=== PATIENT | male | born 1970 | race Caucasian/White ===

== ENCOUNTER → 2018-04-08 09:16 | Outpatient (CLI) | payer MEDICARE, SELFPAY ==
[2018-04-08 09:58] LABS: Add Manual Diff / Slide Review NO; Basophils Percent Auto 0.7 % (0-2); Eosinophils Percent Auto 2.7 % (2-4); Hematocrit 41.8 % (41-53); Hemoglobin 14.8 g/dL (13.5-17.5); Lymphocytes Percent Auto 35.7 % (25-40); Mean Corpuscular HGB Conc 35.3 % (30-36); Mean Corpuscular Hemoglobin 31.2 PG (26-34); Mean Corpuscular Volume 88.5 fL (80-100); Monocytes Percent Auto 8.6 % (3-14); Neutrophils Absolute Auto 3400 /uL (1500-7000); Neutrophils Percent Auto 52.3 % (50-75); Platelet Count 153 X10^3/uL (150-400); Red Blood Cell Count 4.72 X10^6/uL (4.5-5.9); Red Cell Distribution Width 13.3 % (11.6-14.8); White Blood Cell Count 6.5 X10^3/uL (4.5-11.0)
[2018-04-08 10:14] LABS: Alanine Aminotransferase 54 IU/L (21-72); Albumin 4.5 g/dL (3.5-5.0); Albumin Globulin Ratio 1.7 (1.0-2.8); Alkaline Phosphatase 61 U/L (38-126); Aspartate Aminotransferase 28 IU/L (17-59); BUN Creatinine Ratio 16.4 (6-22); Bilirubin Total 1.8 mg/dL (0.2-1.3); Blood Urea Nitrogen 18 mg/dL (9-20); Carbon Dioxide 23 mmol/L (22-32); Chloride 107 mmol/L (98-107); Cholesterol 180 mg/dL (140-199); Estimated Glomerular Filt Rate > 60.0 mL/min (>60); Globulin 2.7 g/dL (1.7-4.1); Glucose 104 mg/dL (70-100); HDL Cholesterol 38 mg/dL (40-60); HEMOLYSIS < 15 (0-50); LDL Cholesterol Calculated 118 mg/dL (<100); Potassium 4.5 mmol/L (3.4-5.1); Sodium 145 mmol/L (137-145); Total Protein 7.2 g/dL (6.3-8.2); Triglycerides 121 mg/dL (35-150)
[2018-04-08 11:39] LABS: Thyroid Stimulating Hormone 3.54 uIU/mL (0.47-4.68)
== END ==
PROVIDERS: PCP Physician Assistant; Visit Provider Physician Assistant
DX: E03.9 Hypothyroidism, unspecified (principal); Z13.220 Encounter for screening for lipoid disorders; Z13.6 Encounter for screening for cardiovascular disorders; R79.89 Other specified abnormal findings of blood chemistry
CPT/HCPCS: 36415; 80053; 80061; 84443; 85025

== ENCOUNTER → 2018-11-07 07:32 | Outpatient (CLI) | payer MEDICARE, SELFPAY ==
[2018-11-07 08:17] LABS: Hematocrit 40.8 % (41-53); Hemoglobin 14.3 g/dL (13.5-17.5); Mean Corpuscular Hemoglobin 30.9 PG (26-34); Mean Corpuscular Volume 88.3 fL (80-100); Platelet Count 142 X10^3/uL (150-400); Red Blood Cell Count 4.62 X10^6/uL (4.5-5.9); Red Cell Distribution Width 12.9 % (11.6-14.8)
[2018-11-07 08:26] LABS: Alanine Aminotransferase 48 IU/L (21-72); Albumin 4.5 g/dL (3.5-5.0); Albumin Globulin Ratio 1.6 (1.0-2.8); Alkaline Phosphatase 58 U/L (38-126); Aspartate Aminotransferase 30 IU/L (17-59); BUN Creatinine Ratio 17.5 (6-22); Bilirubin Total 1.8 mg/dL (0.2-1.3); Blood Urea Nitrogen 21 mg/dL (9-20); Calcium 10.3 mg/dL (8.4-10.2); Carbon Dioxide 25 mmol/L (22-32); Chloride 108 mmol/L (98-107); Cholesterol 194 mg/dL (140-199); Estimated Glomerular Filt Rate > 60.0 mL/min (>60); Globulin 2.9 g/dL (1.7-4.1); Glucose 100 mg/dL (70-100); HDL Cholesterol 37 mg/dL (40-60); HEMOLYSIS < 15 (0-50); LDL Cholesterol Calculated 127 mg/dL (<100); Potassium 4.2 mmol/L (3.4-5.1); Sodium 141 mmol/L (137-145); Total Protein 7.4 g/dL (6.3-8.2); Triglycerides 152 mg/dL (35-150)
[2018-11-07 08:56] LABS: Thyroid Stimulating Hormone 3.65 uIU/mL (0.47-4.68)
[2018-11-09 15:19] LABS: Valproic Acid (Depakene) Total 85.1 mg/L (50.0-100.0)
== END ==
PROVIDERS: Family Provider Nurse Practitioner Family; PCP Nurse Practitioner Family; Visit Provider Nurse Practitioner Psychiatric/Mental Health
DX: Z68.27 Body mass index [BMI] 27.0-27.9, adult (principal); Z51.81 Encounter for therapeutic drug level monitoring; E03.9 Hypothyroidism, unspecified; Z00.00 Encounter for general adult medical examination without abnormal findings
CPT/HCPCS: 36415; 80053; 80061; 80164; 80178; 84443; 85027

== ENCOUNTER → 2019-03-21 10:43 | Outpatient (CLI) | payer MEDICARE, SELFPAY ==
--- NOTE | 2019-03-21 10:45 | DI.RAD.S_ITS ---
PROCEDURE: XR CHEST 2V INDICATIONS: Cough TECHNIQUE: 2 views of the chest were acquired. COMPARISON: [facility], CT, CHEST/ABDOMEN WITH CONTRAST, 05/23/2017, 13:10. [facility], CR, CHEST 2 VIEW, 05/21/2017, 10:42. FINDINGS: Surgical changes and devices: None. Lungs and pleura: Lungs are clear. No pleural effusions or pneumothorax. Mediastinum: Mediastinal contours are normal. Heart size is normal. Bones and chest wall: No suspicious bony abnormalities. Soft tissues appear unremarkable. IMPRESSION: Normal for age, source of current cough symptoms is not seen. If unusual symptoms persist followup by screening chest CT may be warranted. Dictated by: Vinay Jimenez M.D. on 03/21/2019 at 10:56 Approved by: Vinay Jimenez M.D. on 03/21/2019 at 10:58
== END ==
PROVIDERS: Family Provider Nurse Practitioner Family; PCP Nurse Practitioner Family; Visit Provider Nurse Practitioner Family
DX: R05 Cough (principal)
CPT/HCPCS: 71046

== ENCOUNTER → 2019-03-28 16:31 | Outpatient (CLI) | payer MEDICARE, SELFPAY ==
--- NOTE | 2019-03-28 16:34 | DI.RAD.S_ITS ---
PROCEDURE: XR CHEST 2V INDICATIONS: Cough, crackles, r/o effusion TECHNIQUE: 2 views of the chest were acquired. COMPARISON: [facility], CR, XR CHEST 2V, 03/21/2019, 10:43. FINDINGS: Surgical changes and devices: None. Lungs and pleura: Lungs are clear. No pleural effusions or pneumothorax. Mediastinum: Mediastinal contours are normal. Heart size is normal. Bones and chest wall: No suspicious bony abnormalities. Soft tissues appear unremarkable. IMPRESSION: No acute pulmonary process. Dictated by: Valery Ferguson M.D. on 03/28/2019 at 16:52 Approved by: Valery Ferguson M.D. on 03/28/2019 at 16:52
== END ==
PROVIDERS: Family Provider Nurse Practitioner Family; PCP Nurse Practitioner Family; Visit Provider Nurse Practitioner
DX: R05 Cough (principal); R09.89 Other specified symptoms and signs involving the circulatory and respiratory systems
CPT/HCPCS: 71046

== ENCOUNTER 2019-06-16 10:35 | Day surgery (SDC) | payer MEDICARE, SELFPAY ==
--- NOTE | 2019-06-16 | PATH_ITS ---
[facility] Accession Number: [id number] . 01 Material submitted: . PART A: duodenum - DUODENAL POLYP PART B: esophagus, E-G Junction - GE JUNCTION BIOPSY . 02 Diagnosis: A. Duodenal Polyp, Biopsy: Duodenal mucosa with foveolar metaplasia, consistent with peptic duodenitis. Negative for dysplasia or malignancy. Additional step sections examined. . B. Gastroesophageal Junction, Biopsy: Squamous epithelium with mild chronic inflammation. Intraepithelial eosinophils are not increased. No proximal gastric-type mucosa present for evaluation. Negative for dysplasia or malignancy. V 06/18/2019 1505 Local . 02 Electronically signed: . Heber Yuen MD, PhD, Pathologist NPI- [id number] . 01 Gross description: . Part A: DUODENAL POLYP: Received in formalin is 1 fragment(s) of barrios, soft tissue measuring 0.1 x 0.1 x 0.1 cm submitted entirely in 1 cassette(s) Part B: GE JUNCTION BIOPSY: Received in formalin are 2 fragment(s) of barrios, soft tissue measuring 0.2 x 0.2 x 0.1 cm to 0.3 x 0.2 x 0.2 cm submitted entirely in 1 cassette(s) /[facility] [place] [facility] 06/17/2019 0011 Local . 02 Pathologist provided ICD-10: R13.10, K31.7 . 02 CPT . 705323, [id number] Performed at: 01 [facility] includes the [facility] [address] [facility], [place], [place] [id number] MD Beau Leavitt MD Phone: [phone] Performed at: 02 [facility] [place] [address] [place], [place] [id number] MD Venus Fofana MD Phone: [phone]
[2019-06-16 11:23] VITALS: BP 104/75; PULSE 62; RESP 20; TEMP 36.2; O2SAT 98; BMI 27.2
[2019-06-16] MEDS: SODIUM CHLORIDE 0.9% 1,000 ML 200 ML IV (11:37)
--- NOTE | 2019-06-16 11:45 | PM.PREOP ---
Pre-operative Note Interval Note History & Physical reviewed/Exam performed by Physician: Yes Changes to H&P: No ASA Class (for procedural sedation): II
--- NOTE | 2019-06-16 11:48 | SUR.PREOP ---
Patient extremely anxious about preop and procedure. Discussed in depth and very calmly the process and what to expect. Let patient process things slowly. Patient stated he was unsure if he could even put his gown on. Talked to patient about all options including that he does not have to have procedure done. Offered to call patient's father or anyone else which he declined. Updated Dr. Martínez of patient's anxiety. Dr. Martínez stated that patient may keep his clothing on for comfort. After discussing this with patient patient agreed to move on to the next step of preop. Very slowly went through the rest of preop, discussing every step before it was done. Patient tolerated IV start well and once that was in he became much less anxious. Dr. Martínez discussed procedure with patient and Endo nurse calmly came and took patient to procedure room.
--- NOTE | 2019-06-16 12:06 | PM.OP.ENDO ---
Operative Date/Time/Diagnoses Date of procedure: 06/16/19 Time of procedure: 12:07 Pre-op diagnosis: Dysphagia Post-op diagnosis: same Procedure & Clinicians Study performed: Esophagoduodenoscopy Same procedure as scheduled: Yes Indications: 49-year-old man with the reflux and new onset dysphagia. Surgeon: Adair Martínez Procedure Notes SCOAP/Timeout: Performed Procedure in detail: Patient placed in left lateral decubitus position. Time out was performed. Procedural sedation was administered with Versed and Fentanyl. A bite block was placed. the scope was inserted into the mouth and advanced through the esophagus and into the stomach. The pylorus was intubated and the duodenum was was normal for a less than 1 cm polyp in the 1st portion of the duodenum which was biopsied with Jumbo forceps. Hemostasis was observed.. The scope was retroflexed within the stomach and there was a hiatal hernia. No ulcers, or gastritis. The scope was withdrawn into the esophagus the Z line was seen at 35 cm from the incisions. There was no romero's esophagitis or masses or strictures. 4 random biopsies of the Z line were taken with forceps. Stomach was desufflated and scope removed. Patient tolerated procedure well. Sedation minutes: 13 Findings: hiatal hernia and polyp Specimen(s): other (GE junction, duodenal polyp) Complications: none Impression: Duodenal polyp, hiatal hernia Post-procedure Recommendations: Continue medication(s) (Omeprazole 20 mg daily) Disposition: same day surgery
[2019-06-16] MEDS: MIDAZOLAM 5 MG/5 ML VIAL IV (12:10)
[2019-06-16] MEDS: fentaNYL 250 MCG/5 ML INJ IV (12:10)
[2019-06-16 12:20] VITALS: BP 102/67; PULSE 77; RESP 17; TEMP 35.8; O2SAT 93
[2019-06-16] MEDS: TETRACAINE/BENZOCAINE/BUTAMBEN (CETACAINE) BOTTLE 1 SPRAY TOP (12:21)
[2019-06-16 12:25] VITALS: BP 108/75; PULSE 78; RESP 19; O2SAT 93
[2019-06-16 12:30] VITALS: BP 115/78; PULSE 76; RESP 15; O2SAT 92
[2019-06-16 12:34] VITALS: BP 107/68; PULSE 80; RESP 14; O2SAT 93
[2019-06-16 12:35] VITALS: BP 110/72; PULSE 80; RESP 16; O2SAT 93
== END 2019-06-16 12:50 | disposition home or self-care (01) ==
PROVIDERS: PCP Nurse Practitioner Family; Visit Provider Surgery
PROC: 0DJ08ZZ Inspection of Upper Intestinal Tract, Via Natural or Artificial Opening Endoscopic (ICD-10-PCS; CPT 43235; principal; 2019-06-16 11:30)
DX: R13.10 Dysphagia, unspecified (principal); K44.9 Diaphragmatic hernia without obstruction or gangrene; K31.7 Polyp of stomach and duodenum
CPT/HCPCS: 43239; 99152; J2250; J3010

== ENCOUNTER → 2020-04-12 07:15 | Outpatient (CLI) | payer MEDICARE, SELFPAY ==
[2020-04-12 08:47] LABS: Hematocrit 39.5 % (41-53); Hemoglobin 13.6 g/dL (13.5-17.5); Mean Corpuscular HGB Conc 34.5 % (30-36); Mean Corpuscular Hemoglobin 30.6 PG (26-34); Mean Corpuscular Volume 88.7 fL (80-100); Platelet Count 131 X10^3/uL (150-400); Red Blood Cell Count 4.46 X10^6/uL (4.5-5.9); Red Cell Distribution Width 13.5 % (11.6-14.8); White Blood Cell Count 5.1 X10^3/uL (4.5-11.0)
[2020-04-12 08:52] LABS: Hemoglobin A1C% w Est Avg Glu 4.8 % (4.0-6.0)
[2020-04-12 09:12] LABS: Lithium 0.9 mmol/L (0.6-1.2)
[2020-04-12 09:16] LABS: Alanine Aminotransferase 109 IU/L (<50); Albumin 4.1 g/dL (3.5-5.0); Albumin Globulin Ratio 1.5 (1.0-2.8); Alkaline Phosphatase 60 U/L (38-126); Aspartate Aminotransferase 49 IU/L (17-59); BUN Creatinine Ratio 13.4 (6-22); Bilirubin Total 1.4 mg/dL (0.2-1.3); Blood Urea Nitrogen 17 mg/dL (9-20); Calcium 9.8 mg/dL (8.4-10.2); Carbon Dioxide 27 mmol/L (22-32); Chloride 108 mmol/L (98-107); Estimated Glomerular Filt Rate > 60.0 mL/min (>60); Globulin 2.8 g/dL (1.7-4.1); Glucose 97 mg/dL (70-100); HEMOLYSIS < 15 (0-50); Potassium 4.1 mmol/L (3.4-5.1); Sodium 140 mmol/L (137-145); Total Protein 6.9 g/dL (6.3-8.2)
[2020-04-12 09:32] LABS: Free T4, Direct Thyroxine 0.83 ng/dL (0.78-2.19)
[2020-04-14 06:10] LABS: Valproic Acid (Depakene) Total 81 ug/mL (50-100)
== END ==
PROVIDERS: PCP Nurse Practitioner Family; Referring Provider Nurse Practitioner Psychiatric/Mental Health; Visit Provider Nurse Practitioner Psychiatric/Mental Health
DX: F31.32 Bipolar disorder, current episode depressed, moderate (principal); Z79.899 Other long term (current) drug therapy; Z51.81 Encounter for therapeutic drug level monitoring; D69.6 Thrombocytopenia, unspecified; E83.52 Hypercalcemia; R17 Unspecified jaundice; E03.9 Hypothyroidism, unspecified
CPT/HCPCS: 36415; 80053; 80164; 80178; 83036; 84439; 84443; 85027

== ENCOUNTER → 2020-06-09 07:12 | Outpatient (CLI) | payer MEDICARE, SELFPAY ==
[2020-06-09 08:12] LABS: Add Manual Diff / Slide Review NO; Basophils Absolute Auto 0 /uL (0-100); Basophils Percent Auto 0.5 % (0-2); Eosinophils Absolute Auto 100 /uL (0-450); Eosinophils Percent Auto 2.4 % (2-4); Hematocrit 40.9 % (41-53); Hemoglobin 14.1 g/dL (13.5-17.5); Lymphocytes Absolute Auto 2000 /uL (1100-4500); Lymphocytes Percent Auto 34.5 % (25-40); Mean Corpuscular HGB Conc 34.4 % (30-36); Mean Corpuscular Hemoglobin 30.6 PG (26-34); Mean Corpuscular Volume 88.9 fL (80-100); Monocytes Absolute Auto 500 /uL (0-900); Monocytes Percent Auto 9.1 % (3-14); Neutrophils Absolute Auto 3200 /uL (1500-7000); Neutrophils Percent Auto 53.5 % (50-75); Platelet Count 128 X10^3/uL (150-400); Red Cell Distribution Width 13.6 % (11.6-14.8); White Blood Cell Count 5.9 X10^3/uL (4.5-11.0)
[2020-06-09 09:01] LABS: Alanine Aminotransferase 98 IU/L (<50); Albumin 4.3 g/dL (3.5-5.0); Albumin Globulin Ratio 1.5 (1.0-2.8); Alkaline Phosphatase 66 U/L (38-126); Aspartate Aminotransferase 43 IU/L (17-59); Bilirubin Total 1.8 mg/dL (0.2-1.3); Bilirubin Unconjugated 1.8 mg/dL (0.0-1.1); Globulin 2.8 g/dL (1.7-4.1); HEMOLYSIS < 15 (0-50); Total Protein 7.1 g/dL (6.3-8.2)
[2020-06-09 09:33] LABS: Thyroid Stimulating Hormone 3.25 uIU/mL (0.47-4.68)
== END ==
PROVIDERS: PCP Nurse Practitioner Family; Referring Provider Nurse Practitioner Family; Visit Provider Nurse Practitioner Family
DX: E03.9 Hypothyroidism, unspecified (principal); R74.8 Abnormal levels of other serum enzymes; D69.6 Thrombocytopenia, unspecified
CPT/HCPCS: 36415; 80076; 84443; 85025

== ENCOUNTER → 2020-07-01 07:08 | Outpatient (CLI) | payer MEDICARE, SELFPAY ==
[2020-07-01 08:00] LABS: Add Manual Diff / Slide Review NO; Basophils Absolute Auto 0 /uL (0-100); Basophils Percent Auto 0.5 % (0-2); Eosinophils Absolute Auto 100 /uL (0-450); Eosinophils Percent Auto 2.2 % (2-4); Hematocrit 40.6 % (41-53); Hemoglobin 14.2 g/dL (13.5-17.5); Lymphocytes Absolute Auto 1600 /uL (1100-4500); Lymphocytes Percent Auto 24.6 % (25-40); Mean Corpuscular HGB Conc 35.1 % (30-36); Mean Corpuscular Hemoglobin 30.9 PG (26-34); Mean Corpuscular Volume 88.1 fL (80-100); Monocytes Absolute Auto 600 /uL (0-900); Monocytes Percent Auto 9.9 % (3-14); Neutrophils Absolute Auto 4000 /uL (1500-7000); Neutrophils Percent Auto 62.8 % (50-75); Platelet Count 139 X10^3/uL (150-400); Red Cell Distribution Width 13.5 % (11.6-14.8); White Blood Cell Count 6.4 X10^3/uL (4.5-11.0)
[2020-07-01 08:08] LABS: Lithium 1.1 mmol/L (0.6-1.2)
[2020-07-01 08:10] LABS: Alanine Aminotransferase 115 IU/L (<50); Albumin 4.7 g/dL (3.5-5.0); Albumin Globulin Ratio 1.8 (1.0-2.8); Alkaline Phosphatase 67 U/L (38-126); Aspartate Aminotransferase 50 IU/L (17-59); BUN Creatinine Ratio 16.2 (6-22); Bilirubin Total 2.3 mg/dL (0.2-1.3); Blood Urea Nitrogen 21 mg/dL (9-20); Carbon Dioxide 24 mmol/L (22-32); Chloride 108 mmol/L (98-107); Estimated Glomerular Filt Rate 58.9 mL/min (>60); Globulin 2.6 g/dL (1.7-4.1); Glucose 105 mg/dL (70-100); HEMOLYSIS < 15 (0-50); Potassium 4.2 mmol/L (3.4-5.1); Sodium 140 mmol/L (137-145); Total Protein 7.3 g/dL (6.3-8.2)
--- NOTE | 2020-07-01 10:42 | DI.US.S_ITS ---
PROCEDURE: US ABDOMEN COMPLETE INDICATIONS: ELEVATED BILIRUBIN TECHNIQUE: Real-time scanning was performed of the abdominal and retroperitoneal organs, with image documentation. COMPARISON: None. FINDINGS: Liver: Liver is diffusely increased in echogenicity. No focal hepatic abnormalities identified. Normal hepatic size. Gallbladder: No gallstones identified. Normal gallbladder wall. No pericholecystic fluid. Negative sonographic Smiht sign. Biliary ducts: Intrahepatic bile ducts are non-dilated. Extrahepatic bile duct caliber measures 5.8 mm. Normal is 6-7 mm or less in diameter, or 10 mm or less post-cholecystectomy. Pancreas: Visualized portions of the pancreas are sonographically normal. Spleen: Spleen is enlarged in size at 15.4 cm and homogeneous in echotexture. Kidneys: Kidneys are normal in size and echotexture. Right kidney measures 10.7 cm long; left kidney measures 11.7 cm long. No hydronephrosis or nephrolithiasis. No solid masses. Simple left renal cortical cyst measuring 11 mm. Aorta: Visualized aorta is normal in caliber at less than 3 cm. Iliacs: Proximal common iliac arteries are normal in caliber at less than 2.5 cm. IVC: Intrahepatic inferior vena cava is patent. Miscellaneous: No free abdominal fluid. IMPRESSION: 1. Increased hepatic echogenicity noted possibly related to hepatic steatosis but other sources of hepatocellular disease cannot be excluded. Recommend clinical correlation. 2. Sonographic splenomegaly. 3. 11 mm left renal cortical cyst. Dictated by: Guzman Coker [facility] Interpreted: Valery Ferguson MD on 07/02/2020 at 9:20 Approved by: Valery Ferguson M.D. on 07/02/2020 at 11:02
[2020-07-01 23:46] LABS: Valproic Acid (Depakene) Total 85 ug/mL (50-100)
== END ==
PROVIDERS: PCP Nurse Practitioner Family; Referring Provider Nurse Practitioner Psychiatric/Mental Health; Visit Provider Nurse Practitioner Family
DX: R17 Unspecified jaundice (principal); R74.8 Abnormal levels of other serum enzymes; R16.1 Splenomegaly, not elsewhere classified; N28.1 Cyst of kidney, acquired; D69.6 Thrombocytopenia, unspecified; Z51.81 Encounter for therapeutic drug level monitoring
CPT/HCPCS: 36415; 76700; 80053; 80164; 80178; 85025

== ENCOUNTER → 2020-07-21 07:15 | Outpatient (CLI) | payer MEDICARE, SELFPAY ==
[2020-07-21 08:36] LABS: Hemoglobin 14.1 g/dL (13.5-17.5); Mean Corpuscular HGB Conc 34.5 % (30-36); Mean Corpuscular Hemoglobin 30.6 PG (26-34); Mean Corpuscular Volume 88.9 fL (80-100); Platelet Count 151 X10^3/uL (150-400); Red Blood Cell Count 4.61 X10^6/uL (4.5-5.9); Red Cell Distribution Width 13.6 % (11.6-14.8); White Blood Cell Count 5.3 X10^3/uL (4.5-11.0)
[2020-07-21 09:02] LABS: Alanine Aminotransferase 122 IU/L (<50); Albumin 4.6 g/dL (3.5-5.0); Albumin Globulin Ratio 1.6 (1.0-2.8); Alkaline Phosphatase 66 U/L (38-126); Aspartate Aminotransferase 60 IU/L (17-59); BUN Creatinine Ratio 19.2 (6-22); Bilirubin Total 1.8 mg/dL (0.2-1.3); Blood Urea Nitrogen 24 mg/dL (9-20); Calcium 10.4 mg/dL (8.4-10.2); Carbon Dioxide 22 mmol/L (22-32); Chloride 108 mmol/L (98-107); Estimated Glomerular Filt Rate > 60.0 mL/min (>60); Globulin 2.9 g/dL (1.7-4.1); Glucose 106 mg/dL (70-100); HEMOLYSIS < 15 (0-50); Potassium 4.4 mmol/L (3.4-5.1); Sodium 140 mmol/L (137-145); Total Protein 7.5 g/dL (6.3-8.2)
== END ==
PROVIDERS: PCP Nurse Practitioner Family; Referring Provider Nurse Practitioner Family; Visit Provider Nurse Practitioner Psychiatric/Mental Health
DX: D69.6 Thrombocytopenia, unspecified (principal); R74.8 Abnormal levels of other serum enzymes; Z51.81 Encounter for therapeutic drug level monitoring
CPT/HCPCS: 36415; 80053; 80178; 85027

== ENCOUNTER → 2020-10-22 07:07 | Outpatient (CLI) | payer MEDICARE, SELFPAY ==
[2020-10-22 08:25] LABS: Add Manual Diff / Slide Review NO; Basophils Absolute Auto 0 /uL (0-100); Basophils Percent Auto 0.5 % (0-2); Eosinophils Absolute Auto 100 /uL (0-450); Eosinophils Percent Auto 2.7 % (2-4); Hematocrit 41.5 % (41-53); Hemoglobin 14.4 g/dL (13.5-17.5); Lymphocytes Absolute Auto 1400 /uL (1100-4500); Lymphocytes Percent Auto 29.3 % (25-40); Mean Corpuscular HGB Conc 34.6 % (30-36); Mean Corpuscular Hemoglobin 30.2 PG (26-34); Mean Corpuscular Volume 87.3 fL (80-100); Monocytes Absolute Auto 400 /uL (0-900); Monocytes Percent Auto 8.8 % (3-14); Neutrophils Absolute Auto 2900 /uL (1500-7000); Neutrophils Percent Auto 58.7 % (50-75); Platelet Count 142 X10^3/uL (150-400); Red Blood Cell Count 4.75 X10^6/uL (4.5-5.9); Red Cell Distribution Width 13.3 % (11.6-14.8); White Blood Cell Count 4.9 X10^3/uL (4.5-11.0)
[2020-10-22 08:42] LABS: Hemoglobin A1C% w Est Avg Glu 4.8 % (4.0-6.0)
[2020-10-22 08:47] LABS: Alanine Aminotransferase 67 IU/L (<50); Albumin 4.5 g/dL (3.5-5.0); Albumin Globulin Ratio 1.6 (1.0-2.8); Alkaline Phosphatase 54 U/L (38-126); Aspartate Aminotransferase 39 IU/L (17-59); BUN Creatinine Ratio 14.3 (6-22); Bilirubin Total 2.7 mg/dL (0.2-1.3); Bilirubin Unconjugated 2.5 mg/dL (0.0-1.1); Blood Urea Nitrogen 17 mg/dL (9-20); Calcium 10.6 mg/dL (8.4-10.2); Carbon Dioxide 25 mmol/L (22-32); Chloride 109 mmol/L (98-107); Estimated Glomerular Filt Rate > 60.0 mL/min (>60); Globulin 2.8 g/dL (1.7-4.1); Glucose 99 mg/dL (70-100); HEMOLYSIS < 15 (0-50); Potassium 4.3 mmol/L (3.4-5.1); Sodium 141 mmol/L (137-145); Total Protein 7.3 g/dL (6.3-8.2)
[2020-10-22 09:42] LABS: Lithium 1.2 mmol/L (0.6-1.2)
[2020-10-22 10:00] LABS: Free T4, Direct Thyroxine 0.85 ng/dL (0.78-2.19)
[2020-10-22 10:14] LABS: Thyroid Stimulating Hormone 2.15 uIU/mL (0.47-4.68)
[2020-10-22 23:14] LABS: Valproic Acid (Depakene) Total 48 ug/mL (50-100)
== END ==
PROVIDERS: Nurse Practitioner Psychiatric/Mental Health; PCP Nurse Practitioner Family; Referring Provider Nurse Practitioner Family; Visit Provider Nurse Practitioner Family
DX: E03.9 Hypothyroidism, unspecified (principal); Z51.81 Encounter for therapeutic drug level monitoring; F31.9 Bipolar disorder, unspecified; K76.0 Fatty (change of) liver, not elsewhere classified
CPT/HCPCS: 36415; 80053; 80076; 80164; 80178; 83036; 84439; 84443; 85025

== ENCOUNTER → 2021-01-19 07:11 | Outpatient (CLI) | payer MEDICARE, SELFPAY ==
[2021-01-19 08:00] LABS: Add Manual Diff / Slide Review NO; Basophils Absolute Auto 0 /uL (0-100); Basophils Percent Auto 0.3 % (0-2); Eosinophils Absolute Auto 100 /uL (0-450); Hematocrit 41.9 % (41-53); Hemoglobin 14.2 g/dL (13.5-17.5); Lymphocytes Absolute Auto 1400 /uL (1100-4500); Lymphocytes Percent Auto 23.7 % (25-40); Mean Corpuscular Hemoglobin 30.3 PG (26-34); Mean Corpuscular Volume 89.1 fL (80-100); Monocytes Absolute Auto 500 /uL (0-900); Monocytes Percent Auto 8.3 % (3-14); Neutrophils Absolute Auto 3800 /uL (1500-7000); Neutrophils Percent Auto 65.7 % (50-75); Platelet Count 130 X10^3/uL (150-400); Red Blood Cell Count 4.71 X10^6/uL (4.5-5.9); Red Cell Distribution Width 14.2 % (11.6-14.8); White Blood Cell Count 5.8 X10^3/uL (4.5-11.0)
[2021-01-19 08:22] LABS: Alanine Aminotransferase 71 IU/L (<50); Albumin 4.4 g/dL (3.5-5.0); Albumin Globulin Ratio 1.6 (1.0-2.8); Alkaline Phosphatase 57 U/L (38-126); Aspartate Aminotransferase 47 IU/L (17-59); Bilirubin Total 1.9 mg/dL (0.2-1.3); Bilirubin Unconjugated 1.9 mg/dL (0.0-1.1); Globulin 2.8 g/dL (1.7-4.1); HEMOLYSIS 21 (0-50); Total Protein 7.2 g/dL (6.3-8.2)
[2021-01-19 08:34] LABS: Free T4, Direct Thyroxine 0.88 ng/dL (0.78-2.19)
[2021-01-19 08:48] LABS: Thyroid Stimulating Hormone 2.13 uIU/mL (0.47-4.68)
[2021-01-20 00:52] LABS: HBsAg Screen Negative (Negative); Hepatitis A Antibody IgM Negative (Negative); Hepatitis B Core Antibody IgM Negative (Negative); Hepatitis C Antibody <0.1 s/co ratio (0.0-0.9)
[2021-01-20 16:27] LABS: Calcium 9.9 mg/dL (8.7-10.2); Parathyroid Hormone, Intact 47 pg/mL (15-65)
[2021-01-21 13:10] LABS: Smooth Muscle Antibody 8 Units (0-19)
[2021-01-21 17:44] LABS: ANA Screen, IFA Negative (.)
== END ==
PROVIDERS: PCP Nurse Practitioner Family; Referring Provider Nurse Practitioner Family; Visit Provider Nurse Practitioner Family
DX: K76.0 Fatty (change of) liver, not elsewhere classified (principal); R17 Unspecified jaundice; E03.9 Hypothyroidism, unspecified; R74.8 Abnormal levels of other serum enzymes; D69.6 Thrombocytopenia, unspecified
CPT/HCPCS: 36415; 80074; 80076; 82310; 83516; 83970; 84439; 84443; 85025; 86038

== ENCOUNTER → 2021-05-23 07:05 | Outpatient (CLI) | payer MEDICARE, SELFPAY ==
[2021-05-23 08:24] LABS: Add Manual Diff / Slide Review NO; Basophils Absolute Auto 0 /uL (0-100); Basophils Percent Auto 0.5 % (0-2); Eosinophils Absolute Auto 100 /uL (0-450); Eosinophils Percent Auto 2.3 % (2-4); Hematocrit 38.1 % (41-53); Hemoglobin 13.5 g/dL (13.5-17.5); Lymphocytes Absolute Auto 1600 /uL (1100-4500); Lymphocytes Percent Auto 28.8 % (25-40); Mean Corpuscular HGB Conc 35.3 % (30-36); Mean Corpuscular Hemoglobin 31.4 PG (26-34); Monocytes Absolute Auto 400 /uL (0-900); Monocytes Percent Auto 7.9 % (3-14); Neutrophils Absolute Auto 3300 /uL (1500-7000); Neutrophils Percent Auto 60.5 % (50-75); Platelet Count 165 X10^3/uL (150-400); Red Blood Cell Count 4.28 X10^6/uL (4.5-5.9); Red Cell Distribution Width 13.4 % (11.6-14.8); White Blood Cell Count 5.4 X10^3/uL (4.5-11.0)
[2021-05-23 08:37] LABS: Alanine Aminotransferase 45 IU/L (<50); Albumin 4.3 g/dL (3.5-5.0); Albumin Globulin Ratio 1.5 (1.0-2.8); Alkaline Phosphatase 52 U/L (38-126); Aspartate Aminotransferase 28 IU/L (17-59); BUN Creatinine Ratio 13.4 (6-22); Bilirubin Total 1.3 mg/dL (0.2-1.3); Blood Urea Nitrogen 16 mg/dL (9-20); Calcium 10.4 mg/dL (8.4-10.2); Carbon Dioxide 29 mmol/L (22-32); Chloride 110 mmol/L (98-107); Estimated Glomerular Filt Rate > 60.0 mL/min (>60); Globulin 2.8 g/dL (1.7-4.1); Glucose 101 mg/dL (70-100); HEMOLYSIS < 15 (0-50); Potassium 4.7 mmol/L (3.4-5.1); Sodium 144 mmol/L (137-145); Total Protein 7.1 g/dL (6.3-8.2)
== END ==
PROVIDERS: PCP Nurse Practitioner Family; Referring Provider Nurse Practitioner Family; Visit Provider Nurse Practitioner Family
DX: D69.6 Thrombocytopenia, unspecified (principal); R17 Unspecified jaundice; R74.8 Abnormal levels of other serum enzymes; Z00.00 Encounter for general adult medical examination without abnormal findings
CPT/HCPCS: 36415; 80053; 85025

== ENCOUNTER 2021-08-03 10:15 | Outpatient (RCR) | payer MEDICARE, SELFPAY ==
--- NOTE | 2021-08-03 12:34 | PT.OIE ---
Current Diagnoses Other chronic pain (08/03/21) Other instability, unspecified knee (08/03/21) Pain in right knee (08/03/21) Pain in left knee (08/03/21) Past Medical History (Last Updated 06/07/21 @ 16:08 by RACHANA Powers) Bipolar disorder Bunion of great toe of right foot Depression Dysphagia (2009) Elevated bilirubin Elevated liver enzymes Empyema Fatty liver (2020) Hiatal hernia (06/2019) Hypothyroidism Knee pain Medication management No history of previous surgery Thrombocytopenia Past Surgical History (Last Reviewed 08/22/20 @ 11:13 by Kimberlee Vargas PA-C) No history of previous surgery Visit Care Team Role Provider Type RACHANA Powers Attending Provider Nurse Practitioner Family Provider Primary Care Provider Referring Provider Specialty: Sleep Medicine Address: [address] [place] [address], [facility] Email: [email or web address] Physical Therapy Initial Evaluation PT-OP-A Visit Information Start: 08/03/21 12:05 Freq: Status: Active Protocol: Document 08/03/21 10:30 DCW (Rec: 08/03/21 12:19 [facility] [id number]) Out-Patient Physical Therapy Visit Information Visit Information Visit Type Initial Evaluation Visit Start Time 10:30 Visit Stop Time 11:15 Total Visit Minutes 45 Visit Number 1 Number of PHYSICS DEPARTMENT CHAIR Visits 0 Evaluation Information Evaluation Date 08/03/21 PT-OP-B Current Condition Start: 08/03/21 12:05 Freq: Status: Active Protocol: Document 08/03/21 10:30 DCW (Rec: 08/03/21 12:19 DC [id number]) Current Condition History of Current Condition Onset Date ~14 year history Current Complaints Bilateral knee pain History of Current Condition Pt is a 51 year old male presenting with a long- standing history of bilateral knee pain. Pt reports that ~7- 8 years ago, he underwent PT for this same issue, notes it did help a little , but he did not keep up with his HEP, and has been worsening ever since . Pt notes both knees are pretty sensitive to touch and movement. Pt is able to participate in work and is able to walk, but not much else. Pt notes he struggles trying to bowl, and has difficulty descending stairs. Notes fairly constant grinding in his knees with walking. Treatment Goals Patient/Caregiver Goals [place], just a little bit of improvement would help. PT-OP-C Subjective Start: 08/03/21 12:05 Freq: Status: Active Protocol: Document 08/03/21 10:30 DCW (Rec: 08/03/21 12:19 DCW [id number]) OP-PT Subjective Patient Comments Patient Comments I can't run or play basketball anymore, but I'm almost 52, I'm okay with that. I'd like to be able to bowl and just walk without so much discomfort. PT-OP-F Manual Assessment Start: 08/03/21 12:05 Freq: Status: Active Protocol: Document 08/03/21 10:30 DCW (Rec: 08/03/21 12:23 DCW [id number]) Manual Assessments Soft Tissue Assessment Soft Tissue Mobility Assessment Decreased muscle mass/atrophy bilateral VMO Joint Mobility Assessment Joint Mobility Assessment Increased complaints of pain and hypomobility with attempted patellar mobilization bilaterally. Significant crepitus. Lateral movement of patella during knee extension. Poor patellar tracking PT-OP-K Range of Motion Start: 08/03/21 12:05 Freq: Status: Active Protocol: Document 08/03/21 10:30 DCW (Rec: 08/03/21 12:23 DCW [id number]) Knee Goniometric Range of Motion Knee Bilateral Knee ROM WFL Yes Patient Position Supine Flexion Active (degrees) 135 Extension Active (degrees) 0 PT-OP-L Special Tests Start: 08/03/21 12:05 Freq: Status: Active Protocol: Document 08/03/21 10:30 DCW (Rec: 08/03/21 12:23 DCW [id number]) Special Tests Knee Special Tests Varus- 0 Degrees Test Results Negative Valgus- 0 Degrees Test Results Negative Posterior Draw Test Results Negative Patellar Grind Test Test Results Strongly positive bilaterally Patella Tap Test Results Negative Bossman Test Test Results Negative Bell Chondromalacia Test Results Positive bilaterally Apprehension Test Test Results Negative Apley's Compression Test Results Negative Anterior Draw Test Results Negative PT-OP-M Strength Start: 08/03/21 12:05 Freq: Status: Active Protocol: Document 08/03/21 10:30 DCW (Rec: 08/03/21 12:23 DCW [id number]) Knee Strength Knee Manual Muscle Testing Right Flexion (S2) 5 Normal Extension (L3) 4- Good- Comments Pain with resisted R extension Left Flexion (S2) 5 Normal Extension (L3) 4+ Good+ PT-OP-Q Treatments Start: 08/03/21 12:05 Freq: Status: Active Protocol: Document 08/03/21 10:30 DCW (Rec: 08/03/21 12:19 DCW [id number]) Therapeutic Exercises Supine Exercises 2 Supine Exercise Name Bridging /c adductor ball squeeze 1 Supine Exercise Name SLR /c ER Side bilateral Sidelying Exercises 1 Sidelying Exercise Name Hip adduction Side bilateral Manual Therapy Treatment Taping 1 Body Location B knees Treatment Focus Medial patella pull Type of Tape Kinesio Tape PT-OP-T Assessment and Plan Start: 08/03/21 12:05 Freq: Status: Active Protocol: Document 08/03/21 10:30 DCW (Rec: 08/03/21 12:33 DCW [id number]) Physical Therapy Assessment Rehab Potential Rehabilitation Potential Good Evaluation Complexity Number of Personal Factors/Comorbidities 1-2 Number of Body Systems Impaired 1-2 Clinical Presentation at Evaluation Evolving Impairments Impairments Activity Tolerance,Functional Activities,Functional Mobility ,Pain,ROM,Soft Tissue Mobility ,Strength,Tone Goals Three Impairment Bilateral VMO atrophy Intermediate Goal (LTG) Pt to demonstrate increase muscle mass in bilateral VMO to improve patellar tracking. LTG Duration 10/03/21 Two Impairment Pt presents with poor patellar tracking Intermediate Goal (LTG) Pt to display improved patellar tracking bilaterally by demonstrating his patellas cross midline medially during knee extension in order to decrease patellofemoral discomfort. LTG Duration 10/03/21 One Impairment Pt does not have an appropriate home exercise program Short Term Goal (STG) Pt to be independent and compliant with an appropriate HEP STG Duration 09/02/21 Assessment Summary Assessment Pt presents with signs and symptoms consistent with bilateral knee osteoarthritis and poor patellofemoral tracking. Pt shows some decreased VMO muscle mass/ atrophy, which creates a lateral pull on both patella during knee extension. Pt should benefit from strengthening and improved mobility in bilateral VMO, as well as joint mobilization of his patella. Further assessment of gait and stairs may be beneficial to help decrease lateral forces in patella. Physical Therapy Plan Frequency and Duration Frequency of Treatment 2x/Week Duration of Treatment Two months Plan of Care Start Date 08/03/21 Plan of Care End Date 10/03/21 Therapeutic Interventions Therapeutic Interventions Aquatic Therapy,Home Exercise Program,Joint Mobilizations, Manual Therapy,Patient/ Caregiver Education,Self-Care/ Home Management,Soft Tissue Mobilization,Therapeutic Activities,Therapeutic Exercises Modalities Cold Pack/Ice Massage,Electric Stimulation,Hot Packs, Ultrasound Next Visit Focus/Plan Next Note Type Treatment Note Next Visit Plan VMO strengthening, joint mobilizations
--- NOTE | 2021-08-03 12:34 | PT.OPPOC ---
Physical, Occupational & Speech Therapy At [facility] Current Diagnoses Other chronic pain (08/03/21) Other instability, unspecified knee (08/03/21) Pain in right knee (08/03/21) Pain in left knee (08/03/21) Visit Care Team Role Provider Type RACHANA Powers Attending Provider Nurse Practitioner Family Provider Primary Care Provider Referring Provider Specialty: Sleep Medicine Address: [address] [place] [address], [id number] Email: [email or web address] Plan Of Care PT-OP-T Assessment and Plan Start: 08/03/21 12:05 Freq: Status: Active Protocol: Document 08/03/21 10:30 DCW (Rec: 08/03/21 12:33 DCW [id number]) Physical Therapy Assessment Rehab Potential Rehabilitation Potential Good Evaluation Complexity Number of Personal Factors/Comorbidities 1-2 Number of Body Systems Impaired 1-2 Clinical Presentation at Evaluation Evolving Impairments Impairments Activity Tolerance,Functional Activities,Functional Mobility ,Pain,ROM,Soft Tissue Mobility ,Strength,Tone Goals Three Impairment Bilateral VMO atrophy Prison Goal (LTG) Pt to demonstrate increase muscle mass in bilateral VMO to improve patellar tracking. LTG Duration 10/03/21 Two Impairment Pt presents with poor patellar tracking Prison Goal (LTG) Pt to display improved patellar tracking bilaterally by demonstrating his patellas cross midline medially during knee extension in order to decrease patellofemoral discomfort. LTG Duration 10/03/21 One Impairment Pt does not have an appropriate home exercise program Short Term Goal (STG) Pt to be independent and compliant with an appropriate HEP STG Duration 09/02/21 Assessment Summary Assessment Pt presents with signs and symptoms consistent with bilateral knee osteoarthritis and poor patellofemoral tracking. Pt shows some decreased VMO muscle mass/ atrophy, which creates a lateral pull on both patella during knee extension. Pt should benefit from strengthening and improved mobility in bilateral VMO, as well as joint mobilization of his patella. Further assessment of gait and stairs may be beneficial to help decrease lateral forces in patella. Physical Therapy Plan Frequency and Duration Frequency of Treatment 2x/Week Duration of Treatment Two months Plan of Care Start Date 08/03/21 Plan of Care End Date 10/03/21 Therapeutic Interventions Therapeutic Interventions Aquatic Therapy,Home Exercise Program,Joint Mobilizations, Manual Therapy,Patient/ Caregiver Education,Self-Care/ Home Management,Soft Tissue Mobilization,Therapeutic Activities,Therapeutic Exercises Modalities Cold Pack/Ice Massage,Electric Stimulation,Hot Packs, Ultrasound Next Visit Focus/Plan Next Note Type Treatment Note Next Visit Plan VMO strengthening, joint mobilizations Plan of Care Dates Plan of Care Start Date 08/03/21 Plan of Care End Date 10/03/21 Electronically Signed by: Arpit Chavez, PT 08/03/21 7903 If you are in agreement with this Plan of Care, please return a signed and dated copy. I have reviewed this Plan of Care and certify that the skilled therapy services above are required to meet the patient?s needs. Physician Signature Date Printed Name and Credentials Clinical Instructor Signature Printed Name and Credentials
--- NOTE | 2021-08-09 12:45 | PT.OPDS ---
Current Diagnoses Other chronic pain (08/03/21) Other instability, unspecified knee (08/03/21) Pain in right knee (08/03/21) Pain in left knee (08/03/21) Visit Care Team Role Provider Type RACHANA Powers Attending Provider Advanced Tub Wash Operator Family Provider Primary Care Provider Referring Provider Specialty: Sleep Medicine Address: [address] [place] [address], [id number] Email: [email or web address] Visit Number Visit Number 1 Discharge Summary PT-OP-B Current Condition Start: 08/03/21 12:05 Freq: Status: Active Protocol: Document 08/03/21 10:30 DCW (Rec: 08/03/21 12:19 DCW [id number]) Current Condition History of Current Condition Onset Date ~14 year history Current Complaints Bilateral knee pain History of Current Condition Pt is a 51 year old male presenting with a long- standing history of bilateral knee pain. Pt reports that ~7- 8 years ago, he underwent PT for this same issue, notes it did help a little , but he did not keep up with his HEP, and has been worsening ever since . Pt notes both knees are pretty sensitive to touch and movement. Pt is able to participate in work and is able to walk, but not much else. Pt notes he struggles trying to bowl, and has difficulty descending stairs. Notes fairly constant grinding in his knees with walking. Treatment Goals Patient/Caregiver Goals [place], just a little bit of improvement would help. PT-OP-C Subjective Start: 08/03/21 12:05 Freq: Status: Active Protocol: Document 08/03/21 10:30 DCW (Rec: 08/03/21 12:19 DCW [id number]) OP-PT Subjective Patient Comments Patient Comments I can't run or play basketball anymore, but I'm almost 52, I'm okay with that. I'd like to be able to bowl and just walk without so much discomfort. PT-OP-F Manual Assessment Start: 08/03/21 12:05 Freq: Status: Active Protocol: Document 08/03/21 10:30 DCW (Rec: 08/03/21 12:23 DCW [id number]) Manual Assessments Soft Tissue Assessment Soft Tissue Mobility Assessment Decreased muscle mass/atrophy bilateral VMO Joint Mobility Assessment Joint Mobility Assessment Increased complaints of pain and hypomobility with attempted patellar mobilization bilaterally. Significant crepitus. Lateral movement of patella during knee extension. Poor patellar tracking PT-OP-K Range of Motion Start: 08/03/21 12:05 Freq: Status: Active Protocol: Document 08/03/21 10:30 DCW (Rec: 08/03/21 12:23 DCW [id number]) Knee Goniometric Range of Motion Knee Bilateral Knee ROM WFL Yes Patient Position Supine Flexion Active (degrees) 135 Extension Active (degrees) 0 PT-OP-L Special Tests Start: 08/03/21 12:05 Freq: Status: Active Protocol: Document 08/03/21 10:30 DCW (Rec: 08/03/21 12:23 DCW [id number]) Special Tests Knee Special Tests Varus- 0 Degrees Test Results Negative Valgus- 0 Degrees Test Results Negative Posterior Draw Test Results Negative Patellar Grind Test Test Results Strongly positive bilaterally Patella Tap Test Results Negative Bossman Test Test Results Negative Bell Chondromalacia Test Results Positive bilaterally Apprehension Test Test Results Negative Apley's Compression Test Results Negative Anterior Draw Test Results Negative PT-OP-M Strength Start: 08/03/21 12:05 Freq: Status: Active Protocol: Document 08/03/21 10:30 DCW (Rec: 08/03/21 12:23 DCW [id number]) Knee Strength Knee Manual Muscle Testing Right Flexion (S2) 5 Normal Extension (L3) 4- Good- Comments Pain with resisted R extension Left Flexion (S2) 5 Normal Extension (L3) 4+ Good+ PT-OP-T Assessment and Plan Start: 08/03/21 12:05 Freq: Status: Active Protocol: Document 08/09/21 12:44 DCW (Rec: 08/09/21 12:45 DCW [id number]) Physical Therapy Assessment Assessment Summary Assessment Pt phoned clinic, asked for discharge, reports he doesn't feel therapy will be able to help him. Pt will be discharged at this time
== END 2021-08-10 12:38 ==
LOC: PHYS 10:15
PROVIDERS: Family Provider Nurse Practitioner Family; PCP Nurse Practitioner Family; Referring Provider Nurse Practitioner Family; Visit Provider Nurse Practitioner Family
DX: M25.562 Pain in left knee (principal); M25.561 Pain in right knee; G89.29 Other chronic pain; M25.369 Other instability, unspecified knee
CPT/HCPCS: 97110; 97162

== ENCOUNTER → 2021-08-24 06:55 | Outpatient (CLI) | payer MEDICARE, SELFPAY ==
[2021-08-24 08:27] LABS: Hematocrit 39.6 % (41-53); Hemoglobin 13.6 g/dL (13.5-17.5); Mean Corpuscular HGB Conc 34.4 % (30-36); Mean Corpuscular Volume 90.1 fL (80-100); Platelet Count 143 X10^3/uL (150-400); Red Cell Distribution Width 13.1 % (11.6-14.8)
[2021-08-24 09:01] LABS: Lithium 0.9 mmol/L (0.6-1.2)
[2021-08-24 09:04] LABS: Alanine Aminotransferase 43 IU/L (<50); Albumin 4.4 g/dL (3.5-5.0); Albumin Globulin Ratio 1.7 (1.0-2.8); Alkaline Phosphatase 61 U/L (38-126); Aspartate Aminotransferase 29 IU/L (17-59); BUN Creatinine Ratio 16.9 (6-22); Bilirubin Total 1.7 mg/dL (0.2-1.3); Blood Urea Nitrogen 23 mg/dL (9-20); Carbon Dioxide 26 mmol/L (22-32); Chloride 107 mmol/L (98-107); Cholesterol 200 mg/dL (140-199); Estimated Glomerular Filt Rate > 60 mL/min (>60); Globulin 2.6 g/dL (1.7-4.1); Glucose 94 mg/dL (70-100); HDL Cholesterol 40 mg/dL (40-60); HEMOLYSIS < 15 (0-50); LDL Cholesterol Calculated 129 mg/dL (<100); Potassium 4.6 mmol/L (3.4-5.1); Sodium 142 mmol/L (137-145); Triglycerides 157 mg/dL (35-150)
[2021-08-24 09:13] LABS: Free T4, Direct Thyroxine 0.97 ng/dL (0.78-2.19)
[2021-08-24 09:27] LABS: Thyroid Stimulating Hormone 1.87 uIU/mL (0.47-4.68)
[2021-08-24 22:52] LABS: Valproic Acid (Depakene) Total 80 ug/mL (50-100)
== END ==
PROVIDERS: Family Provider Nurse Practitioner Family; PCP Nurse Practitioner Family; Referring Provider Psychiatry & Neurology Psychiatry; Visit Provider Psychiatry & Neurology Psychiatry
DX: E03.9 Hypothyroidism, unspecified (principal); Z00.00 Encounter for general adult medical examination without abnormal findings; Z13.6 Encounter for screening for cardiovascular disorders; F31.32 Bipolar disorder, current episode depressed, moderate; Z51.81 Encounter for therapeutic drug level monitoring
CPT/HCPCS: 36415; 80053; 80061; 80164; 80178; 84439; 84443; 85027

== ENCOUNTER → 2022-03-08 06:48 | Outpatient (CLI) | payer MEDICARE, SELFPAY ==
[2022-03-08 07:56] LABS: Add Manual Diff / Slide Review NO; Basophils Absolute Auto 0 /uL (0-100); Basophils Percent Auto 0.6 % (0-2); Eosinophils Absolute Auto 100 /uL (0-450); Eosinophils Percent Auto 2.6 % (2-4); Hematocrit 39.7 % (41-53); Hemoglobin 13.9 g/dL (13.5-17.5); Lymphocytes Absolute Auto 1700 /uL (1100-4500); Lymphocytes Percent Auto 31.7 % (25-40); Mean Corpuscular HGB Conc 34.9 % (30-36); Mean Corpuscular Hemoglobin 31.2 PG (26-34); Mean Corpuscular Volume 89.5 fL (80-100); Monocytes Absolute Auto 600 /uL (0-900); Monocytes Percent Auto 10.8 % (3-14); Neutrophils Absolute Auto 3000 /uL (1500-7000); Neutrophils Percent Auto 54.3 % (50-75); Platelet Count 142 X10^3/uL (150-400); Red Blood Cell Count 4.44 X10^6/uL (4.5-5.9); Red Cell Distribution Width 13.7 % (11.6-14.8); White Blood Cell Count 5.5 X10^3/uL (4.5-11.0)
[2022-03-08 08:19] LABS: BUN Creatinine Ratio 17.2 (6-22); Blood Urea Nitrogen 21 mg/dL (9-20); Estimated Glomerular Filt Rate > 60 mL/min (>60)
[2022-03-08 08:20] LABS: Lithium 0.9 mmol/L (0.6-1.2)
[2022-03-09 05:12] LABS: Valproic Acid (Depakene) Total 68 ug/mL (50-100)
== END ==
PROVIDERS: Family Provider Nurse Practitioner Family; PCP Family Medicine; Referring Provider Psychiatry & Neurology Psychiatry; Visit Provider Psychiatry & Neurology Psychiatry
DX: D64.9 Anemia, unspecified (principal); F31.9 Bipolar disorder, unspecified; Z79.899 Other long term (current) drug therapy; R79.89 Other specified abnormal findings of blood chemistry; R79.9 Abnormal finding of blood chemistry, unspecified
CPT/HCPCS: 36415; 80164; 80178; 82565; 84520; 85025

== ENCOUNTER → 2022-06-23 07:37 | Outpatient (CLI) | payer MEDICARE, SELFPAY ==
--- NOTE | 2022-06-23 07:39 | DI.RAD.S_ITS ---
PROCEDURE: XR HAND LT MIN 3V INDICATIONS: Left hand pain TECHNIQUE: 3 views of the hand(s) acquired. COMPARISON: None. FINDINGS: Bones: No fractures or dislocations. Carpal bones are normally aligned. No suspicious bony lesions. Soft tissues: No suspicious soft tissue calcifications. IMPRESSION: No acute osseous abnormality. Dictated by: Carlos Pan M.D. on 06/23/2022 at 8:03 Approved by: Carlos Pan M.D. on 06/23/2022 at 8:04
== END ==
PROVIDERS: Family Provider Nurse Practitioner Family; PCP Family Medicine; Referring Provider Physician Assistant; Visit Provider Physician Assistant
DX: M79.642 Pain in left hand (principal)
CPT/HCPCS: 73130

== ENCOUNTER → 2023-01-17 07:08 | Outpatient (CLI) | payer MEDICARE, SELFPAY ==
[2023-01-17 08:18] LABS: Add Manual Diff / Slide Review NO; Basophils Absolute Auto 0 /uL (0-100); Basophils Percent Auto 0.5 % (0-2); Eosinophils Absolute Auto 100 /uL (0-450); Eosinophils Percent Auto 2.7 % (2-4); Hematocrit 35.7 % (41-53); Hemoglobin 12.8 g/dL (13.5-17.5); Lymphocytes Absolute Auto 1700 /uL (1100-4500); Lymphocytes Percent Auto 32.8 % (25-40); Mean Corpuscular HGB Conc 35.8 % (30-36); Mean Corpuscular Volume 89.5 fL (80-100); Monocytes Absolute Auto 600 /uL (0-900); Monocytes Percent Auto 10.9 % (3-14); Neutrophils Absolute Auto 2700 /uL (1500-7000); Neutrophils Percent Auto 53.1 % (50-75); Platelet Count 104 X10^3/uL (150-400); Red Blood Cell Count 3.98 X10^6/uL (4.5-5.9); Red Cell Distribution Width 13.8 % (11.6-14.8); White Blood Cell Count 5.1 X10^3/uL (4.5-11.0)
[2023-01-17 08:41] LABS: Alanine Aminotransferase 56 IU/L (<50); Albumin 3.9 g/dL (3.5-5.0); Albumin Globulin Ratio 1.6 (1.0-2.8); Alkaline Phosphatase 56 U/L (38-126); Aspartate Aminotransferase 36 IU/L (17-59); BUN Creatinine Ratio 10.1 (6-22); Bilirubin Total 1.4 mg/dL (0.2-1.3); Blood Urea Nitrogen 12 mg/dL (9-20); Calcium 10.1 mg/dL (8.4-10.2); Carbon Dioxide 23 mmol/L (22-32); Chloride 108 mmol/L (98-107); Cholesterol 188 mg/dL (140-199); Estimated Glomerular Filt Rate > 60 mL/min (>60); Globulin 2.4 g/dL (1.7-4.1); Glucose 102 mg/dL (70-100); HDL Cholesterol 39 mg/dL (40-60); HEMOLYSIS < 15 (0-50); LDL Cholesterol Calculated 117 mg/dL (<100); Potassium 4.4 mmol/L (3.4-5.1); Sodium 140 mmol/L (137-145); Total Protein 6.3 g/dL (6.3-8.2); Triglycerides 159 mg/dL (35-150)
[2023-01-17 09:09] LABS: TSH w/ Reflex to FT4 2.27 uIU/mL (0.47-4.68)
== END ==
PROVIDERS: PCP Family Medicine; Referring Provider Family Medicine; Visit Provider Family Medicine
DX: R79.89 Other specified abnormal findings of blood chemistry (principal); E03.9 Hypothyroidism, unspecified; R79.9 Abnormal finding of blood chemistry, unspecified; D64.9 Anemia, unspecified; K76.0 Fatty (change of) liver, not elsewhere classified
CPT/HCPCS: 36415; 80053; 80061; 84443; 85025

== ENCOUNTER → 2023-06-27 06:45 | Outpatient (CLI) | payer MEDICARE, SELFPAY ==
[2023-06-27 08:08] LABS: Lithium 1.1 mmol/L (0.6-1.2)
[2023-06-29 05:21] LABS: Valproic Acid (Depakene) Total 82 ug/mL (50-100)
== END ==
LOC: LAB 06:46
PROVIDERS: Psychiatry & Neurology Psychiatry; PCP Family Medicine; Referring Provider Family Medicine; Visit Provider Family Medicine
DX: Z79.899 Other long term (current) drug therapy (principal); F31.9 Bipolar disorder, unspecified
CPT/HCPCS: 36415; 80164; 80178

== ENCOUNTER → 2024-01-23 06:48 | Outpatient (CLI) | payer MEDICARE, SELFPAY ==
[2024-01-23 08:52] LABS: Add Manual Diff / Slide Review NO; Basophils Absolute Auto 0 /uL (0-100); Basophils Percent Auto 0.6 % (0-2); Eosinophils Absolute Auto 200 /uL (0-450); Eosinophils Percent Auto 3.6 % (2-4); Hematocrit 38.3 % (41-53); Hemoglobin 13.6 g/dL (13.5-17.5); Lymphocytes Absolute Auto 1500 /uL (1100-4500); Lymphocytes Percent Auto 29.4 % (25-40); Mean Corpuscular HGB Conc 35.6 % (30-36); Mean Corpuscular Hemoglobin 33.7 PG (26-34); Mean Corpuscular Volume 94.7 fL (80-100); Monocytes Absolute Auto 500 /uL (0-900); Monocytes Percent Auto 10.4 % (3-14); Neutrophils Absolute Auto 2800 /uL (1500-7000); Platelet Count 138 X10^3/uL (150-400); Red Blood Cell Count 4.05 X10^6/uL (4.5-5.9); Red Cell Distribution Width 13.4 % (11.6-14.8)
[2024-01-23 09:02] LABS: Cholesterol 196 mg/dL (140-199); HDL Cholesterol 43 mg/dL (40-60); LDL Cholesterol Calculated 125 mg/dL (<100); Triglycerides 140 mg/dL (35-150)
[2024-01-23 09:05] LABS: Alanine Aminotransferase 70 IU/L (<50); Albumin 4.2 g/dL (3.5-5.0); Albumin Globulin Ratio 1.6 (1.0-2.8); Alkaline Phosphatase 66 U/L (38-126); Aspartate Aminotransferase 43 IU/L (17-59); BUN Creatinine Ratio 17.2 (6-22); Bilirubin Total 1.7 mg/dL (0.2-1.3); Blood Urea Nitrogen 21 mg/dL (9-20); Calcium 10.5 mg/dL (8.4-10.2); Carbon Dioxide 22 mmol/L (22-32); Chloride 108 mmol/L (98-107); Estimated Glomerular Filt Rate > 60 mL/min (>60); Globulin 2.6 g/dL (1.7-4.1); Glucose 102 mg/dL (70-100); HEMOLYSIS < 15 (0-50); Potassium 4.4 mmol/L (3.4-5.1); Sodium 138 mmol/L (137-145); Total Protein 6.8 g/dL (6.3-8.2)
[2024-01-23 09:34] LABS: TSH w/ Reflex to FT4 2.09 uIU/mL (0.47-4.68)
[2024-01-23 17:31] LABS: Lithium 1.2 mmol/L (0.6-1.2)
[2024-01-24 04:14] LABS: Valproic Acid (Depakene) Total 83 ug/mL (50-100)
== END ==
PROVIDERS: PCP Family Medicine; Referring Provider Psychiatry & Neurology Psychiatry; Visit Provider Psychiatry & Neurology Psychiatry
DX: F31.9 Bipolar disorder, unspecified (principal); E78.5 Hyperlipidemia, unspecified; E03.9 Hypothyroidism, unspecified; R74.8 Abnormal levels of other serum enzymes; D64.9 Anemia, unspecified; Z79.899 Other long term (current) drug therapy
CPT/HCPCS: 36415; 80053; 80061; 80164; 80178; 84443; 85025

== ENCOUNTER → 2024-04-17 06:47 | Outpatient (CLI) | payer MEDICARE, SELFPAY ==
[2024-04-17 08:55] LABS: Alanine Aminotransferase 115 IU/L (<50); Aspartate Aminotransferase 60 IU/L (17-59); Bilirubin Total 2.3 mg/dL (0.2-1.3)
== END ==
PROVIDERS: PCP Family Medicine; Referring Provider Family Medicine; Visit Provider Family Medicine
DX: R74.01 Elevation of levels of liver transaminase levels (principal)
CPT/HCPCS: 36415; 82247; 84450; 84460

== ENCOUNTER → 2024-04-25 06:38 | Outpatient (CLI) | payer MEDICARE, SELFPAY ==
[2024-04-25 08:47] LABS: Uric Acid 7.7 mg/dL (3.5-8.5)
== END ==
LOC: LAB 06:41
PROVIDERS: PCP Family Medicine; Referring Provider Podiatrist; Visit Provider Podiatrist
DX: M79.89 Other specified soft tissue disorders (principal)
CPT/HCPCS: 36415; 84550

== ENCOUNTER → 2024-07-02 11:11 | Outpatient (CLI) | payer MEDICARE, SELFPAY ==
--- NOTE | 2024-07-02 11:12 | DI.RAD.S_ITS ---
PROCEDURE: XR CHEST 2V INDICATIONS: sob and feels weaker right side TECHNIQUE: 2 views of the chest were acquired. COMPARISON: [facility], CR, XR CHEST 2V, 03/28/2019, 16:32. FINDINGS: Surgical changes and devices: None. Lungs and pleura: Lungs are clear. No pleural effusions or pneumothorax. Mediastinum: Mediastinal contours are normal. Heart size is normal. Bones and chest wall: No suspicious bony abnormalities. Soft tissues appear unremarkable. IMPRESSION: No acute cardiopulmonary abnormality is seen. Dictated by: Geovanny Hunt M.D. on 07/02/2024 at 17:28 Approved by: Geovanny Hunt M.D. on 07/02/2024 at 17:28
== END ==
PROVIDERS: PCP Family Medicine; Referring Provider Physician Assistant; Visit Provider Physician Assistant
DX: R06.02 Shortness of breath (principal)
CPT/HCPCS: 71046

== ENCOUNTER → 2024-09-19 06:36 | Outpatient (CLI) | payer MEDICARE, SELFPAY ==
[2024-09-19 07:59] LABS: Alanine Aminotransferase 50 IU/L (<50); Albumin 4.5 g/dL (3.5-5.0); Albumin Globulin Ratio 1.9 (1.0-2.8); Alkaline Phosphatase 68 U/L (38-126); Aspartate Aminotransferase 37 IU/L (17-59); BUN Creatinine Ratio 15.2 (6-22); Bilirubin Total 1.9 mg/dL (0.2-1.3); Blood Urea Nitrogen 20 mg/dL (9-20); Calcium 10.2 mg/dL (8.4-10.2); Carbon Dioxide 22 mmol/L (22-32); Chloride 109 mmol/L (98-107); Cholesterol 204 mg/dL (140-199); Estimated Glomerular Filt Rate > 60 mL/min (>60); Globulin 2.4 g/dL (1.7-4.1); Glucose 100 mg/dL (70-99); HDL Cholesterol 40 mg/dL (40-60); HEMOLYSIS < 15 (0-50); LDL Cholesterol Calculated 133 mg/dL (<100); Potassium 4.7 mmol/L (3.4-5.1); Sodium 140 mmol/L (137-145); Total Protein 6.9 g/dL (6.3-8.2); Triglycerides 153 mg/dL (35-150)
[2024-09-19 08:03] LABS: Lithium 1.2 mmol/L (0.6-1.2)
[2024-09-20 04:38] LABS: Valproic Acid (Depakene) Total 83 ug/mL (50-100)
== END ==
PROVIDERS: PCP Family Medicine; Referring Provider Psychiatry & Neurology Psychiatry; Visit Provider Psychiatry & Neurology Psychiatry
DX: E78.5 Hyperlipidemia, unspecified (principal); R74.01 Elevation of levels of liver transaminase levels; R17 Unspecified jaundice; F31.9 Bipolar disorder, unspecified; Z79.899 Other long term (current) drug therapy
CPT/HCPCS: 36415; 80053; 80061; 80164; 80178

== ENCOUNTER → 2025-03-05 13:08 | Outpatient (CLI) | payer MEDICARE, SELFPAY ==
[2025-03-05 14:00] LABS: Lithium 1.0 mmol/L (0.6-1.2)
[2025-03-05 14:09] LABS: Alanine Aminotransferase 36 IU/L (<50); Albumin 4.5 g/dL (3.5-5.0); Albumin Globulin Ratio 1.7 (1.0-2.8); Alkaline Phosphatase 61 U/L (38-126); Blood Urea Nitrogen 24 mg/dL (9-20); Calcium 10.2 mg/dL (8.4-10.2); Carbon Dioxide 23 mmol/L (22-32); Chloride 109 mmol/L (98-107); Estimated Glomerular Filt Rate > 60 mL/min (>60); Globulin 2.6 g/dL (1.7-4.1); Glucose 85 mg/dL (70-99); HEMOLYSIS < 15 (0-50); Potassium 4.6 mmol/L (3.4-5.1); Sodium 141 mmol/L (137-145); Total Protein 7.1 g/dL (6.3-8.2)
== END ==
PROVIDERS: PCP Family Medicine; Referring Provider Psychiatry & Neurology Psychiatry; Visit Provider Psychiatry & Neurology Psychiatry
DX: F31.32 Bipolar disorder, current episode depressed, moderate (principal); Z79.899 Other long term (current) drug therapy
CPT/HCPCS: 36415; 80053; 80164; 80178